=== PATIENT | male | born 1990 | race African-American/Black ===

== ENCOUNTER 2017-04-16 23:28 | Emergency (ER) | payer MEDICAID, OTHER ==
[~2017-04-16] VITALS: Ht 180.3 cm; Wt 81.6 kg
[2017-04-17] MEDS ORDERED: ALBUTEROL SULF 2.5 MG/0.5ML(0.5%) NEB SOLN NEB ONE
[2017-04-17] MEDS ORDERED: IPRATROPIUM BROM 0.5 MG/2.5ML INH SOL NEB ONE
[2017-04-17 02:30] VITALS: BP 136/86
== END 2017-04-17 02:34 | disposition home or self-care (01) ==
LOC: ER 23:28
DX: J45.901 Unspecified asthma with (acute) exacerbation (principal)
CPT/HCPCS: 71045; 94640